=== PATIENT | female | born 1985 | race Caucasian/White ===

== ENCOUNTER 2020-03-14 11:36 | Outpatient (CLI) | payer OTHER, SELFPAY ==
[2020-03-14 12:08] LABS: Hematocrit 39.3 % (37.0-47.0); Hemoglobin 12.9 g/dL (12.0-15.0); Mean Corpuscular HGB Conc 32.8 g/dl (32-36); Mean Corpuscular Hemoglobin 27.9 pg (26-34); Mean Corpuscular Volume 85.1 fl (80-100); Mean Platelet Volume 11.7 fl (7.4-10.4); Platelet Count Result 190 k/mm3 (150-375); Red Blood Count 4.62 M/mm3 (4.2-5.4); Red Cell Distribution Width 14.5 % (11.5-14.5); White Blood Count 9.5 K/mm3 (4.5-10.0)
== END 2020-03-14 11:37 | disposition home or self-care (01) ==
PROVIDERS: PCP Family Medicine; Visit Provider Obstetrics & Gynecology
DX: N92.0 Excessive and frequent menstruation with regular cycle (principal)
CPT/HCPCS: 36415; 85027; 86850; 86900; 86901

== ENCOUNTER 2020-03-23 01:18 | Outpatient (CLI) | payer OTHER, MEDICAID, SELFPAY ==
[2020-03-23 21:41] LABS: SARS-CoV-2 RNA PCR Negative
== END 2020-03-23 01:19 | disposition home or self-care (01) ==
LOC: ANHCOVIDDT 01:20
PROVIDERS: Anesthesiology; PCP Family Medicine; Visit Provider Obstetrics & Gynecology
DX: Z01.818 Encounter for other preprocedural examination (principal); Z11.59 Encounter for screening for other viral diseases
CPT/HCPCS: 87635; C9803; U0003

== ENCOUNTER 2020-03-26 02:04 | Day surgery (SDC) | payer OTHER, MEDICAID, SELFPAY ==
[2020-03-12 11:14] VITALS: BMI 43.3
[2020-03-26] VITALS (15 sets, daily range): BP systolic 102–132; BP diastolic 45–79; PULSE 52–91; RESP 12–18; TEMP 36.1–37.3; O2SAT 94–99
[2020-03-26] MEDS: ACETAMINOPHEN 500 MG TABLET 1000 MG PO (07:01)
--- NOTE | 2020-03-26 07:16 | WPDHPUPDATE1 ---
History and Physical Update Update Date/Time: 03/26/20 07:16 History and Physical has been reviewed, including an updated exam of the patient. There are NO changes in the patient's condition. Risks, benefits, and alternatives have been discussed and questions answered. Patient agrees to proceed with procedure.
[2020-03-26] MEDS: LACTATED RINGERS 1,000 ML 30 ML IV CONT ×2 (07:25→11:21)
--- NOTE | 2020-03-26 07:29 | WPDANESEPP ---
Anes - Eval Pre Procedure Procedure: Operation Date: 03/26/20 08:30 Proposed Procedures p Total Laparoscopic Hysterectomy - Karol Reveles MD Date/Time: 03/26/20 07:29 Pre Op Diagnosis: menorrhagia, dysmenorrhea Patient Data Age: 34 Gender: F Height: 5 ft 3 in Weight: 84 kg Allergies Allergy/AdvReac Type Severity Reaction Status Date / Time latex Allergy Intermediate Hives Verified 03/26/20 06:57 Penicillins Allergy Intermediate rash Verified 03/26/20 06:57 amoxicillin AdvReac Intermediate Vomiting Verified 03/26/20 06:57 Contrast Media Allergy Intermediate Hives Uncoded 03/26/20 06:57 Home Medications Medication Instructions Recorded Confirmed Type No Home Medications 03/12/20 03/26/20 History Patient hx anesthesia problems: none Family hx anesthesia problems: none PMFSH Past Medical History Medical History Gall bladder disease Over weight Smoker Surgical History Surgical History (Updated 03/26/20 @ 07:30 by Italo López CRNA) History of right oophorectomy Social History Social History Smoking packs per day: 0.5 Smoking cigarettes per day: 10.0 Years smoked: 20 Smoking pack-years: 10.00 Smoking status: Current every day smoker Tobacco type: cigarettes Alcohol use details: rarely Living arrangements: with family Gender identity (if verbalized by the patient): Female Spiritual care concerns: No Exam Day of Procedure 03/26/20 07:29 Patient weight: overweight
--- NOTE | 2020-03-26 07:34 | WPDANESEFPP ---
Anes - Eval Final PreProcedure Day of Procedure 03/26/20 07:34 Patient weight: overweight Heart: regular rate and rhythm Lungs: clear to auscultation Airway: Mallampati scale class II Neurological: alert and oriented Last oral intake: >/= 8 hours ASA classification: II Emergent: no Anesthetic plan: proceed Anesthesia type and monitoring: general ETT and standard monitoring Informed Consent: The patient's anesthetic plan and its attendant risks and benefits were discussed with the patient/family/POA. Questions were solicited and answers provided to the satisfaction of the patient/family/POA.
[2020-03-26] MEDS: KETOROLAC 15 MG/ML VIAL (*BKC) IV PUSH (07:41)
[2020-03-26] MEDS: GENTAMICIN SULFATE INJ 380 MG in DEXTROSE 5% 100 ML 109.5 MG IVPB (08:34)
[2020-03-26] MEDS: CLINDAMYCIN 900 MG/NS 50 ML 900 MG/50 ML PIGGYBACK 50 MG IVPB (08:51)
--- NOTE | 2020-03-26 11:33 | PM.PROC ---
Procedure Note - Detailed Date of procedure: 03/26/20 Pre-op diagnosis: menorrhagia, dysmenorrhea Myoma Post-op diagnosis: same Procedure performed: Total laparoscopic hysterectomy and Left Ovarian Cystectomy Description of procedure: The patient was taken to the operating room. She was prepped and draped in the dorsal lithotomy position. A speculum was placed in the vagina. The cervix was grasped with a tenaculum. Stay sutures were placed at 3 and 9:00 a.m. of 0 Vicryl. The stay sutures were brought through the [place] up. The JACE manipulator was placed in the vagina with a fixed [place] cup. The cup was then pushed up around the cervix. The sutures were tied to the handle of the JACE manipulator. A 5 mm incision was made on the abdominal skin of the left upper quadrant using a scalpel. A 5 mm trocar was inserted into the intra-abdominal cavity under direct visualization the scope. Pneumoperitoneum was achieved. An 11 mm incision was made in the left lower quadrant of the abdomen with a scalpel. A 11 mm trocar was inserted into the intra-abdominal cavity under direct visualization the scope. A 5 mm periumbilical incision was made. A 5 mm scope was placed into the intra-abdominal cavity under direct visualization of the scope. The cyst on the left ovary about 5 cm was removed using LigaSure cautery. We then removed with the LigaSure cautery. The cyst capsule was then removed using blunt dissection. The suspensory ligament of the ovary was cauterized and transected with ligature cautery in a bilateral fashion. The fallopian tubes were cauterized and transected in a bilateral fashion with LigaSure cautery. The round ligaments were cauterized and transected in bilateral fashion with LigaSure cautery. The round ligaments were cauterized and transected bilaterally with LigaSure cautery. The broad ligaments were cauterized and transected along the lateral aspects of the uterus down the level of the uterine arteries. A bladder flap was created using sharp and blunt dissection. The ureters were dissected out bilaterally down to the level of the uterine arteries. They could be visualized from the pelvic brim down the uterine arteries. Staying very close to the cervix the parametrium was cauterized transected in a stepwise fashion down to the level of the [place] cup. The Bladder flap was moved distally over the [place] cup using sharp and blunt dissection. The impression of the entire cup was visualized around the cervix. An incision was made with unipolar cautery down under the [place] cup creating a colpotomy incision all the way around the cervix. The uterus tubes and ovaries were taken out through the vagina. A pneumo occluder was placed in the vagina. The vagina was closed with 0 V lock suture in a running fashion. The ureters were identified again and found to be intact to the level of the uterine arteries. The pelvis was irrigated with a copious amount of antibiotic irrigation. The pneumoperitoneum was reduced. The trocars were removed. The skin was closed subcuticular 4 Monocryl covered with Dermabond. The pneumo occluder was removed from the vagina. The vagina was irrigated with Betadine. The patient tolerated the procedure well. She was taken to the recovery room in stable condition. Sponge lap and needle counts were correct x2. Anesthesia: GETA Surgeon: Karol Reveles MD Estimated blood loss (mL): 200 Drains: No Packing: No Pathology: yes Complications: No immediate complications Condition: stable Disposition: PACU Findings: Grossly normal appearing tubes and ovaries. Uterus - 10cm , enlarged fibroid uterus, 5 cm left ovarian cyst. Absent right ovary
--- NOTE | 2020-03-26 12:29 | PC.NURSE ---
This patient, Holli Hawk, was received from PACU on 03/26/20 at 1229. . Patient/family oriented to unit policies and routines
[2020-03-26] MEDS: KETOROLAC 30 MG/ML VIAL (*BKC) IV PUSH (13:19)
[2020-03-26] MEDS: LACTATED RINGERS 1,000 ML 125 ML IV CONT (13:51)
[2020-03-26] MEDS: IBUPROFEN 600 MG TABLET PO (20:07)
[2020-03-27] MEDS: IBUPROFEN 600 MG TABLET PO ×2 (02:22→07:56)
[2020-03-27 05:55] VITALS: BP 98/61; PULSE 64; RESP 14; TEMP 36.7; O2SAT 98
--- NOTE | 2020-03-27 07:26 | WPDANESPN ---
Anes - Prog Note Post-Op Date/Time: 03/27/20 07:26 Cardiovascular status: normal Respiratory status: normal Airway patency: baseline Mental status: baseline Post-Op hydration status: normal Vital Signs: Last Vital Signs Temp 36.7 C 03/27/20 05:55 Pulse 64 03/27/20 05:55 Resp 14 03/27/20 05:55 BP 98/61 L 03/27/20 05:55 Pulse Ox 98 03/27/20 05:55 I/O: Intake & Output 03/26/20 03/26/20 03/27/20 15:59 23:59 07:59 Intake Total 909.5 800 Output Total 15 1450 300 Balance 894.5 -650 -300 Post-procedural complaints: none Patient Feedback: Patient satisfied with anesthetic care.
[2020-03-27 08:04] VITALS: BP 114/56; PULSE 65; RESP 18; TEMP 37
--- NOTE | 2020-03-27 09:55 | PC.NURSE ---
Self care discharge instructions given to pt. including when to see Dr. Reveles in office. Pt. voiced understanding. No questions or concerns voiced. at side.
[2020-03-27] MEDS: SIMETHICONE 80 MG TAB.CHEW PO (11:05)
--- NOTE | 2020-03-27 12:54 | PM.GYNPNOP ---
TECHNICAL RECRUITER - A/P Postoperative Procedures: Procedures Operation Date: 03/26/20 08:30 Actual Procedures Side Surgeon p Total Laparoscopic Hysterectomy, Left Ovarian Cystectomy, Right Salpingectomy Not Applicable Karol Reveles MD Postoperative day: 1 Postoperative status: doing well and other (Tollerating Regular Diet) Postoperative plan: routine post-op care and discharge Time Spent With Patient Time: Total time spent is greater than 50% in coordination of care (as documented) at patient's floor/unit and/or counseling patient: Time with patient: 15 - 25 minutes TECHNICAL RECRUITER- PN:Subj Post-Op Subjective Date/time seen: 03/27/20 12:54 Subjective: patient reports feeling better, pain is well controlled and patient is tolerating oral intake Exam Const: General: cooperative, healthy appearing, comfortable and no acute distress Resp: Auscultation: no crackles, no rales, no rhonchi and no wheezes Cardio: Rhythm: regular rhythm Heart sounds: no click and no murmurs GI: Inspection: non-distended Auscultation: normal bowel sounds Other: Incisions - CDI Extrem: General: normal to inspection, no pedal edema and no calf tenderness TECHNICAL RECRUITER - PN: Obj Data Vital Signs Vital Signs: Vital Signs - 24 hr 03/26/20 13:00 03/26/20 13:30 03/26/20 14:00 Temperature 97.8 F Pulse Rate 52 L 57 L 61 Respiratory Rate 18 18 18 Blood Pressure 107/64 107/69 113/64 Pulse Oximetry 94 97 98 03/26/20 15:00 03/26/20 16:00 03/26/20 16:27 Temperature 98 F 97.5 F L Pulse Rate 57 L 62 91 Respiratory Rate 18 18 18 Blood Pressure 106/61 102/73 108/59 L Pulse Oximetry 97 96 03/26/20 19:45 03/26/20 23:00 03/27/20 05:55 Temperature 99.0 F 99.1 F 98.0 F Pulse Rate 62 65 64 Respiratory Rate 14 15 14 Blood Pressure 118/65 118/56 L 98/61 L Pulse Oximetry 99 97 98 03/27/20 08:04 Temperature 98.6 F Pulse Rate 65 Respiratory Rate 18 Blood Pressure 114/56 L Pulse Oximetry Intake/Output Intake/Output: Intake & Output 03/24/20 03/25/20 03/26/20 03/27/20 23:59 23:59 23:59 23:59 Intake Total 1709.5 Output Total 1465 300 Balance 244.5 -300 Meds/Results Medications: Active Medications Generic Name Dose Route Start Last Admin Trade Name Freq PRN Reason Stop Dose Admin Hydrocodone Bitart/Acetaminophen 1 tab 03/26/20 12:21 [place] 5-325 Mg PO Q3H PRN Pain Rated 5 or Less Hydrocodone Bitart/Acetaminophen 1 tab 03/26/20 12:21 03/27/20 10:17 [place] 10-325 Mg PO 1 tab Q3H PRN Administration Pain Rated 6 or Greater Fentanyl Citrate 50 mcg 03/26/20 14:40 03/26/20 15:03 Sublimaze IV PUSH 50 mcg Q1H PRN Administration for pain 7-10 until qamar. po Lactated Ringer's 1,000 mls @ 125 mls/hr 03/26/20 13:25 03/26/20 13:51 Lr - Lactated Ringers Iv IV CONT 125 mls/hr .Q8H RADHA Administration Ibuprofen 600 mg 03/26/20 12:21 03/27/20 07:56 Motrin PO 600 mg Q6H PRN Administration Cramping Ketorolac Tromethamine 30 mg 03/26/20 12:21 03/26/20 13:19 Toradol Inj IV PUSH 03/31/20 12:22 30 mg Q6H PRN Administration Pain Rated 4-6 Naloxone HCl 0.1 mg 03/26/20 12:21 Narcan IV PUSH Q2M PRN Respiratory rate less than 10 Simethicone 80 mg 03/27/20 13:00 03/27/20 11:05 Mylicon PO 80 mg QID RADHA Administration
== END 2020-03-27 13:55 | disposition home or self-care (01) ==
LOC: ANHSURGERY 06:44 → ANHOB2 14:20
PROVIDERS: PCP Family Medicine; Visit Provider Obstetrics & Gynecology
PROC: 0UT9FZZ Resection of Uterus, Via Natural or Artificial Opening With Percutaneous Endoscopic Assistance (ICD-10-PCS; CPT 58573; principal; 2020-03-26 08:30)
DX: N92.0 Excessive and frequent menstruation with regular cycle (principal); N94.6 Dysmenorrhea, unspecified; N83.02 Follicular cyst of left ovary; N85.02 Endometrial intraepithelial neoplasia [EIN]; D25.1 Intramural leiomyoma of uterus; F17.210 Nicotine dependence, cigarettes, uncomplicated
CPT/HCPCS: 58573; 88302; 88305; 88307; 99199; A9270; J1100; J1170; J1200; J1580; J1885; J2250; J2704; J2710; J3010; J7120